=== PATIENT | male | born 1995 | race Caucasian/White ===

== ENCOUNTER 2018-05-18 15:37 | Outpatient (CLI) | payer MEDICAID | END 2018-05-18 15:38 | disposition home or self-care (01) | LOC: C.RADH 15:37 | DX: M70.31 Other bursitis of elbow, right elbow (principal) ==

== ENCOUNTER 2018-07-17 22:56 | Emergency (ER) | payer MEDICAID ==
[2018-07-17] MEDS ORDERED: Sodium Chloride 0.9% 1,000 ML IV ONE (23:20)
--- NOTE | 2018-07-17 23:20 | C.PDOC ---
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 Patient unable to tolerate liquids. Denies fever or abdominal pain. He reports one loose bowel movement, denies recent travel or sick contact. Also complains of headache, denies neck pain. vomiting TODAY. 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 UNABLE TO TOLERATE LIQUID. NO FEVER, ABD PAIN. +LOOSE BM X 1. NO TRAVEL, SICK CONTACTS. CO CHRISTINA. NO NECK PAIN EXAM NONTOXIC HEENT NO PHOTOPHOBIA NECK SUPPLE NO MENINGISMUS ABD NEG NEURO INTACT NO FOCAL DEF GAIT WNL Time Seen by Provider: 07/17/18 23:11 Chief Complaint (Nursing): GI Problem History Per: Patient History/Exam Limitations: no limitations Onset/Duration Of Symptoms: Hrs Current Symptoms Are (Timing): Still Present Quality Of Discomfort: Unable To Describe Associated Symptoms: Vomiting, Other (Loose bowel movement, Headache). denies: Fever Exacerbating Factors: None Alleviating Factors: None Recent travel outside of the [place]: No Past Medical History Reviewed: Historical Data, Nursing Documentation, Vital Signs Vital Signs: Last Vital Signs Temp 99.4 F 07/17/18 23:02 Pulse 100 H 07/17/18 23:02 Resp 18 07/17/18 23:02 BP 115/74 07/17/18 23:02 Pulse Ox 99 07/17/18 23:02 Family History: States: No Known Family Hx - Social History Hx Alcohol Use: No Hx Substance Use: No - Immunization History Hx Tetanus Toxoid Vaccination: No Hx Influenza Vaccination: No Hx Pneumococcal Vaccination: No Review Of Systems Except As Marked, All Systems Reviewed And Found Negative. Constitutional: Negative for: Fever, Chills Gastrointestinal: Positive for: Vomiting, Other (Loose bowel movement) Neurological: Positive for: Headache Physical Exam - Physical Exam Appears: Non-toxic Skin: Normal Color, Warm Head: Atraumatic, Normacephalic Eye(s): bilateral: Normal Inspection, PERRL, EOMI, Other (No photophobia) Ear(s): Bilateral: Normal Nose: Normal Oral Mucosa: Moist Throat: Normal, No Erythema, No Exudate Neck: Normal, Supple, Other (No meningismus) Chest: Symmetrical, No Tenderness Cardiovascular: Rhythm Regular Respiratory: Normal Breath Sounds, No Rales, No Rhonchi, No Wheezing Gastrointestinal/Abdominal: Soft, No Tenderness Extremity: Normal ROM (x4) Neurological/Psych: Oriented x3, Normal Speech, Normal Motor, Normal Sensation, Other (No focal deficit) Gait: Steady ED Course And Treatment O2 Sat by Pulse Oximetry: 99 (Room air) Pulse Ox Interpretation: Normal Reevaluation Time: 00:36 Reassessment Condition: Improved (CHRISTINA RESOLVED REQUESTING DC HOME) Medical Decision Making Medical Decision Making: Plan: * IV fluids * Toradol * Tylenol * Zofran Disposition Counseled Patient/Family Regarding: Diagnosis, Need For Followup, Rx Given - Disposition Referrals: YOUR,PMD [Other] Disposition: HOME/ ROUTINE Disposition Time: 00:36 Condition: IMPROVED Prescriptions: Ondansetron ODT [Zofran ODT] 4 mg PO TID PRN #12 odt PRN Reason: Nausea/Vomiting Instructions: Nausea and Vomiting, Adult (DC) Forms: [facility] (Bangladeshi) - Clinical Impression Clinical Impression: Vomiting and diarrhea - Scribe Statement The provider has reviewed the documentation as recorded by the Scribe Zeb Noble All medical record entries made by the Scribe were at my direction and personally dictated by me. I have reviewed the chart and agree that the record accurately reflects my personal performance of the history, physical exam, medical decision making, and the department course for this patient. I have also personally directed, reviewed, and agree with the discharge instructions and disposition.
[2018-07-17] MEDS ORDERED: Sodium Chloride 0.9% 1,000 ML ONE (23:42)
[2018-07-18 01:00] VITALS: BP 109/61; PULSE 83; RESP 20; TEMP 98.4; O2SAT 98
== END 2018-07-18 01:07 | disposition home or self-care (01) ==
LOC: C.ER 22:56
DX: R11.10 Vomiting, unspecified (principal); R19.7 Diarrhea, unspecified
CPT/HCPCS: 96361; 96374; 96375; 99284; J1885; J2405; J7030